=== PATIENT | female | born 1990 | race American Indian/Alaskan Native ===

== ENCOUNTER 2017-06-30 08:37 | Emergency (ER) | payer MEDICAID ==
[2017-06-30 08:54] VITALS: BP 110/64
--- NOTE | 2017-06-30 09:23 | Emergency Department Report ---
Blank Doc - Documentation Documentation: Patient is a 27-year-old black female who states she is approximately 6 weeks who is experiencing 2 days of vaginal bleeding. Patient states is at the level.. There have been several clots. Patient has some crampy lower abdominal pain. Patient does not know her blood type we will do that R typing here in the emergency department as well as a beta Quant. Patient will undergo ultrasound. The patient be reassessed.
[2017-06-30 09:27] LABS: Hemoglobin 11.2 gm/dl (10.1-14.3); Mean Corpuscular HGB Conc 32 % (30-34); Mean Corpuscular Hemoglobin 27 pg (28-32); Mean Corpuscular Volume 84 fl (79-97); Platelet Count 216 K/mm3 (140-440); Red Blood Count 4.17 M/mm3 (3.65-5.03); Red Cell Distribution Width 17.3 % (13.2-15.2)
[2017-06-30 10:05] LABS: Bacteria,Urine 1+ /HPF (Negative); Bilirubin,Urine NEG (Negative); Blood,Urine MOD (Negative); Color,Urine Yellow (Yellow); Protein,Urine <15 mg/dL mg/dL (Negative); Urobilinogen,Urine < 2.0 mg/dL (<2.0)
--- NOTE | 2017-06-30 10:47 | Emergency Department Report ---
ED Abdominal Pain HPI - General Chief Complaint: Abdominal Pain Stated Complaint: VAGINAL BLEEDING/ Time Seen by Provider: 06/30/17 09:09 Source: patient Mode of arrival: Ambulatory Limitations: No Limitations - History of Present Illness Initial Comments: Patient is a 27-year-old black female who states she is approximately 6 weeks who is experiencing 2 days of vaginal bleeding. She reports bleeding is light and she had one day of a small clot. Patient is complaining of cramping in her lower abdomen. It is on and off and this is been going on for 2 days. She is 5 para 4 living 3 with [place] one miscarriage. She reports that the bleeding is very light and she can only see it when she wipes but she had one clot and Wednesday. Patient says she has an appointment at my OB/ [facility] on 07/05/2017. She denies any urinary burning, frequency or urgency. Denies any nausea or vomiting. Denies any abdominal pain. Denies any back pain. Abdominal pain is 7 out of 10 and crampy. This comes and goes and nothing makes it better or makes it worse. She denies significant any medication for pain. MD Complaint: abdominal pain Onset/Timin -: days(s) Location: suprapubic Radiation: none Migration to: no migration Severity: severe Severity scale (0 -10): 7 Quality: cramping Consistency: intermittent Improves With: nothing Worsens With: nothing Context: other (patient reports that she is .) Associated Symptoms: denies: nausea, vomiting, diarrhea, fever, chills, constipation, dysuria, hematemesis, hematochezia, melena, hematuria, anorexia, syncope - Related Data LMP Date: 05/11/17 Previous Rx's Medication Instructions Recorded Last Taken Type Cephalexin [Keflex] 500 mg PO Q8HR 7 Days #14 cap 06/30/17 Unknown Rx Pnv No.95/Ferrous Fum/Folic AC 1 each PO QAM 30 Days #30 tablet 06/30/17 Unknown Rx [Prenavite Tablet] Allergies Allergy/AdvReac Type Severity Reaction Status Date / Time No Known Allergies Allergy Unverified 06/30/17 08:55 ED Review of Systems ROS: Stated complaint: VAGINAL BLEEDING/ Other details as noted in HPI Comment: All other systems reviewed and negative Constitutional: no symptoms reported Respiratory: denies: cough, orthopnea, shortness of breath, SOB with exertion, SOB at rest, stridor, wheezing Cardiovascular: denies: chest pain, palpitations, edema, syncope Gastrointestinal: abdominal pain. denies: nausea, vomiting, diarrhea, constipation, hematemesis, melena, hematochezia Genitourinary: abnormal menses, other (vaginal bleed in 1 episode of clot.). denies: urgency, dysuria, frequency, hematuria, discharge, dyspareunia Musculoskeletal: denies: back pain, joint swelling, arthralgia Skin: denies: rash, lesions Neurological: weakness. denies: headache, abnormal gait, vertigo ED Past Medical Hx - Past Medical History Previous Medical History?: No - Surgical History Past Surgical History?: No - Family History Family history: hypertension - Social History Smoking Status: Never Smoker Substance Use Type: None Other Social History: Patient lives with her children - Medications Home Medications: Home Medications Medication Instructions Recorded Confirmed Last Taken Type Cephalexin [Keflex] 500 mg PO Q8HR 7 Days #14 cap 06/30/17 Unknown Rx Pnv No.95/Ferrous Fum/Folic AC 1 each PO QAM 30 Days #30 tablet 06/30/17 Unknown Rx [Prenavite Tablet] ED Physical Exam - General Limitations: No Limitations General appearance: alert, in no apparent distress - Head Head exam: Present: atraumatic, normocephalic, normal inspection - Eye Eye exam: Present: normal appearance - ENT ENT exam: Present: normal exam, normal orophraynx, mucous membranes moist - Neck Neck exam: Present: normal inspection, full ROM. Absent: tenderness, lymphadenopathy - Respiratory Respiratory exam: Present: normal lung sounds bilaterally. Absent: respiratory distress, chest wall tenderness, accessory muscle use - Cardiovascular Cardiovascular Exam: Present: regular rate, normal rhythm, normal heart sounds. Absent: systolic murmur, diastolic murmur - GI/Abdominal GI/Abdominal exam: Present: soft, normal bowel sounds. Absent: distended, tenderness, guarding, rebound, rigid, organomegaly, mass, bruit, pulsatile mass , hernia - External exam: Present: normal external exam. Absent: erythema, swelling, lesions, lacerations, ecchymosis, bleeding Speculum exam: Present: erythema, cervical discharge (skin), other (lesion from cervical os). Absent: normal speculum exam, vaginal discharge, vaginal bleeding , foreign body, tissue, laceration Bi-manual exam: Present: normal bi-manual exam. Absent: cervical motion tendernes, adnexal tenderness, adnexal mass, uterine tenderness - Expanded Exam Expanded Female exam: Absent: vaginal laceration, tissue present in vagina, herpetic lesions, vulvar erythema, vulvar tenderness, foreign body External exam: Present: normal Amniotic fluid: Present: none Speculum exam: Present: cervical OS open, vaginal bleeding, vaginal discharge - Extremities Exam Extremities exam: Present: normal inspection, full ROM, normal capillary refill , other (no clubbing, cyanosis or edema. Positive pulses all extremities with no neurovascular compromise). Absent: tenderness, pedal edema, joint swelling, calf tenderness - Back Exam Back exam: Present: normal inspection, full ROM, other (ambulates without any difficulties). Absent: tenderness, CVA tenderness (R), CVA tenderness (L), muscle spasm, paraspinal tenderness, vertebral tenderness, rash noted - Neurological Exam Neurological exam: Present: alert, oriented X3, normal gait - Psychiatric Psychiatric exam: Present: normal affect, normal mood - Skin Skin exam: Present: warm, dry, intact, normal color. Absent: rash ED Course Vital Signs 06/30/17 06/30/17 08:49 14:38 Temperature 98.0 F Pulse Rate 68 92 H Respiratory 16 18 Rate Blood Pressure 110/64 O2 Sat by Pulse 100 99 Oximetry - Reevaluation(s) Reevaluation #1: 06/30/17 14:24 Patient stable throughout ED course. No change in abdominal exam. ED Medical Decision Making - Lab Data Result diagrams: 06/30/17 09:16 Lab Results 06/30/17 06/30/17 06/30/17 Range/Units 09:16 09:16 09:16 WBC 8.6 (4.5-11.0) K/mm3 RBC 4.17 (3.65-5.03) M/mm3 Hgb 11.2 (10.1-14.3) gm/dl Hct 35.0 (30.3-42.9) % MCV 84 (79-97) fl MCH 27 L (28-32) pg MCHC 32 (30-34) % RDW 17.3 H (13.2-15.2) % Plt Count 216 (140-440) K/mm3 HCG, Quant 53118 H (0-4) mIU/mL Urine Color (Yellow) Urine Turbidity (Clear) Urine pH (5.0-7.0) Ur Specific [place] (1.003-1.030) Urine Protein (Negative) mg/dL Urine Glucose (UA) (Negative) mg/dL Urine Ketones (Negative) mg/dL Urine Blood (Negative) Urine Nitrite (Negative) Urine Bilirubin (Negative) Urine Urobilinogen (<2.0) mg/dL Ur Leukocyte Esterase (Negative) Urine WBC (Auto) (0.0-6.0) /HPF Urine RBC (Auto) (0.0-6.0) /HPF U Epithel Cells (Auto) (0-13.0) /HPF Urine Bacteria (Auto) (Negative) /HPF Blood Type O POSITIVE 06/30/17 Range/Units 09:25 WBC (4.5-11.0) K/mm3 RBC (3.65-5.03) M/mm3 Hgb (10.1-14.3) gm/dl Hct (30.3-42.9) % MCV (79-97) fl MCH (28-32) pg MCHC (30-34) % RDW (13.2-15.2) % Plt Count (140-440) K/mm3 HCG, Quant (0-4) mIU/mL Urine Color Yellow (Yellow) Urine Turbidity Hazy (Clear) Urine pH 7.0 (5.0-7.0) Ur Specific [place] 1.019 (1.003-1.030) Urine Protein <15 mg/dl (Negative) mg/dL Urine Glucose (UA) Neg (Negative) mg/dL Urine Ketones Neg (Negative) mg/dL Urine Blood Mod (Negative) Urine Nitrite Neg (Negative) Urine Bilirubin Neg (Negative) Urine Urobilinogen < 2.0 (<2.0) mg/dL Ur Leukocyte Esterase Lg (Negative) Urine WBC (Auto) 2.0 (0.0-6.0) /HPF Urine RBC (Auto) 3.0 (0.0-6.0) /HPF U Epithel Cells (Auto) 10.0 (0-13.0) /HPF Urine Bacteria (Auto) 1+ (Negative) /HPF Blood Type Urine culture pending Prep negative for yeast, negative clue cells and negative Trichomonas Gonorrhea and chlamydia pending - Radiology Data Radiology results: report reviewed Ultrasound transvaginal chance abdominal place patient at single viable intrauterine gestation. [place]-rump length corresponding 6 weeks and 6 days and is gestational sac diameter is 8 weeks and 4 days. Patient has left complex ovarian cyst and a right ovary appears normal. - Medical Decision Making ED course: Patient reports that she is approximately 6 weeks . She says that she has an appointment on 07/05/2017 with my [facility]. Patient reports that she's been having cramping and bleeding in that started 2 days ago and she had one episode of clot 2 days ago. Patient had ultrasound which showed viable intrauterine between 6 and 8 weeks gestation. She also has a left ovarian cyst. heart tones detected. I discussed the patient that she needs to keep her appointment with my [facility] and if she develop returning abdominal pain, increasing bleeding to return to the emergency room. Patient's pelvic exam with cervical os open and small amount of blood coming from cervical os. I also discussed her diagnosis of threatened miscarriage and she' s had miscarriage in the past. She says she voiced understanding. I encouraged her to not to do any strenuous activity and to keep her appointment with her [facility]. Patient is not on vitamins so I prescribe her vitamin. Her CBC was stable, hCG quantitative is positive and a urinalysis revealed that she has large amount of leukocyte Estrace with 1+ bacteria and moderate blood. Patient was treated for UTI with Rocephin 1 g. She had gonorrhea chlamydia test done which is still pending and her wet prep was negative. Discharge home with her family in stable condition. Diagnostic/labs: She had urinalysis which is positive for UTI and culture sent. , CBC stable. HCG quantitative positive. Wet prep negative and CHL is pending. Urine culture sent and pending. Transabdominal OB and OB transvaginal ultrasound shows patient with single viable intrauterine gestation with heart rate at 123 beats per minutes and also left ovarian cyst. Please refer to radiology section for ultrasound report and laboratory section for details and lab results. Diagnosis: Threatened miscarriage, abdominal pain in early , vaginal bleeding, compromise cervical os, acute cystitis in and left ovarian cyst Medication given in emergency room: Rocephin1 g IM to treat acute cystitis and patient had no adverse reaction Home prescription: Needle vitamin and Keflex Referrals: Patient has appointment with my [facility] on 07/05/2017 and a encourage her to keep this appointment and to call them and let them know that she was in emergency room today. Discharge instruction: Pelvic rest, no sexual activity until directed by your OB /TIN ASSORTER. Patient instructed if she developed increasing vaginal bleeding, abdominal pain, nausea or vomiting, back pain, fever or chills to return to emergency room [facility]. She was discharged home with her family in stable condition and voices understanding of discharge injection and treatment plan Critical care attestation.: If time is entered above; I have spent that time in minutes in the direct care of this critically ill patient, excluding procedure time. ED Disposition Clinical Impression: Threatened miscarriage in early , Acute cystitis during in first trimester, Vaginal bleeding during , Left ovarian cyst Abdominal pain Qualifiers: Abdominal location: lower abdomen, unspecified Qualified Code(s): R10.30 - Lower abdominal pain, unspecified Disposition: DC-01 TO HOME OR SELFCARE Is pt being admited?: No Does the pt Need Aspirin: No Condition: Stable Instructions: Threatened Miscarriage (ED), Ovarian Cyst (ED), Urinary Tract Infection in Women (ED), Abdominal Pain (ED) Additional Instructions: Please follow-up with your [facility] doctor as scheduled on 07/05/2017. Take antibiotics as prescribed for urinary tract infection rest and Avoid doing any strenuous activity. Increasing fluid intake to 2-3 L of water daily You are high risk for threatened miscarriage so you'll need to follow up with your [facility]. Start vitamin She develop increasing vaginal bleeding, abdominal pain, nausea no vomiting in, weakness, please return to the emergency room otherwise follow-up with your OB/ TIN ASS[facility]TER Prescriptions: Cephalexin [Keflex] 500 mg PO Q8HR 7 Days #14 cap Pnv No.95/Ferrous Fum/Folic AC [Prenavite Tablet] 1 each PO QAM 30 Days #30 tablet Referrals: [facility] [Provider Group] - 07/05/17
[2017-06-30] MEDS ORDERED: XYLOCAINE 1% MPF 5 mL INFILTRATI ONE (11:40)
[2017-06-30] MEDS ORDERED: ROCEPHIN IM STA (11:40)
--- NOTE | 2017-06-30 12:04 | Ultrasound Report ---
Pelvic and transvaginal sonography: History: Vaginal bleeding. Findings: Uterus measures 11.2 x 5 x 6.6 cm. Single viable intrauterine gestation is noted. Gestational sac diameter 34.4 mm corresponding to 8 weeks and 4 days of gestation. CRL fetus 8.9 mm corresponding to 6 weeks and 6 days of gestation. heart rate 123 per minute. Right ovary 3.3 x 1.7 x 2 cm. No mass. Left ovary 3.3 x 2.2 x 2.8 cm. Complex cyst in the left ovary measures 2.4 cm. Impression: Single viable intrauterine gestation.
== END 2017-06-30 14:38 | disposition home or self-care (01) ==
LOC: ED 08:37
DX: O20.0 Threatened abortion (principal); Z3A.01 Less than 8 weeks gestation of pregnancy
CPT/HCPCS: 36415; 76801; 76817; 81001; 84702; 85027; 86900; 86901; 87086; 87210; 87591; 96372; 99284; J0696

== ENCOUNTER 2017-07-30 23:33 | Emergency (ER) | payer MEDICAID ==
[2017-07-31 01:04] LABS: Bilirubin,Urine NEG (Negative); Blood,Urine LG (Negative); Color,Urine Yellow (Yellow); Mucus,Urine FEW /HPF; Protein,Urine <15 mg/dL mg/dL (Negative)
[2017-07-31 01:13] LABS: Basophils % (Auto) 0.3 % (0.0-1.8); Eosinophils # (Auto) 0.1 K/mm3 (0.0-0.4); Hematocrit 34.1 % (30.3-42.9); Hemoglobin 10.8 gm/dl (10.1-14.3); Lymphocytes # (Auto) 3.2 K/mm3 (1.2-5.4); Lymphocytes % (Auto) 36.1 % (13.4-35.0); Mean Corpuscular HGB Conc 32 % (30-34); Mean Corpuscular Hemoglobin 27 pg (28-32); Mean Corpuscular Volume 86 fl (79-97); Monocytes # (Auto) 0.6 K/mm3 (0.0-0.8); Monocytes % (Auto) 7.3 % (0.0-7.3); Platelet Count 212 K/mm3 (140-440); Red Blood Count 3.95 M/mm3 (3.65-5.03); Red Cell Distribution Width 17.8 % (13.2-15.2)
[2017-07-31 01:32] LABS: Alanine Aminotransferase 7 units/L (7-56); Albumin 3.8 g/dL (3.9-5); BUN/Creatinine Ratio 26; Blood Urea Nitrogen 18 mg/dL (7-17); Calcium 8.8 mg/dL (8.4-10.2); Hemolysis Index 0
--- NOTE | 2017-07-31 05:42 | Ultrasound Report ---
FINAL REPORT EXAM: US OB TRANSVAGINAL HISTORY: +hcg abd pain TECHNIQUE: Transvaginal imaging was obtained the pelvis including Doppler interrogation of the adnexa. FINDINGS: The uterus is anteverted measuring 8.8 cm x 5.4 cm x 7.3 cm. The endometrium is thickened at 20.3 mm. The thickened endometrium has a heterogeneous appearance in the fundus. Retained products of conception cannot be excluded. There is no evidence of an intrauterine gestational sac. There is a nabothian cysts in the cervix. Free fluid is not seen. The right ovary is normal in size contour and echotexture measuring 3 cm x 1.5 cm x 1.3 cm. There are benign follicles in right ovary. The blood flow is normal in the right ovary. The left ovary measures 3.5 cm x 2.3 cm x 2.1 cm. The blood flow is normal left ovary. There are benign-appearing follicles in the left ovary. IMPRESSION: Heterogeneous thickened endometrium particularly in the fundus without evidence of an intact IUP. The findings most likely represent retained products of conception. Benign-appearing follicles in both ovaries. No evidence of free fluid.
--- NOTE | 2017-07-31 05:43 | Ultrasound Report ---
FINAL REPORT EXAM: US OB < = 14 WEEKS FETUS HISTORY: +hcg abd pain TECHNIQUE: Transabdominal imaging was obtained of the pelvis including Doppler interrogation of the adnexa. FINDINGS: The uterus is anteverted measuring 8.8 cm x 5.4 cm x 7.3 cm. There is a small nabothian cysts in the cervix. The endometrium is thickened measuring 20.3 mm. It has a heterogeneous echotexture particularly in the fundus. There is no evidence of an intrauterine gestational sac otherwise. Free fluid is not seen. The right ovary is normal size contour and echotexture measuring 3 cm x 1.5 cm x 1.3 cm. There are benign-appearing follicles in right ovary. The blood flow is normal. The left ovary measures 3.5 cm x 2.3 cm x 2.1 cm. There are benign-appearing follicles in left ovary. The blood flow is normal to left ovary. IMPRESSION: Thickened endometrium with heterogeneous echotexture most likely representing retained products of conception. No evidence of an intact IUP or ectopic . Normal appearing ovaries with benign follicles.
--- NOTE | 2017-07-31 07:22 | Emergency Department Report ---
ED Abdominal Pain HPI - General Chief Complaint: Abdominal Pain Stated Complaint: VAGINAL BLEEDING/LOWER ABD PAIN Time Seen by Provider: 07/31/17 06:43 Source: patient Mode of arrival: Ambulatory Limitations: No Limitations - History of Present Illness Initial Comments: Patient presents with persistent and increasing vaginal bleeding since having therapeutic 2 weeks earlier. She has not had any fever. She initially had a small amount of spotting after the procedure, which was performed at a women's clinic in one week, by , whom she did not have a relationship with, and with whom she has not followed. She did not contact the Center when bleeding began getting more heavy 5 days ago, with clots and soaking several pads over the course of the day. She has not lightheadedness, no fever chills or diaphoresis, no abdominal pain, no cough or congestion. Patient has an securities sales associate, name she can't recall, on [facility], and had an appointment for 3 days ago, but had car trouble and could not make it, and has a repeat appointment on Wednesday. She came in because of the persistence of the heavy bleeding. Past medical history is otherwise one of good general health. - Related Data Previous Rx's Medication Instructions Recorded Last Taken Type Cephalexin [Keflex] 500 mg PO Q8HR 7 Days #14 cap 06/30/17 Unknown Rx Pnv No.95/Ferrous Fum/Folic AC 1 each PO QAM 30 Days #30 tablet 06/30/17 Unknown Rx [Prenavite Tablet] HYDROcodone/ACETAMINOPHEN [Diamond 1 each PO Q6HR PRN #20 tablet 07/31/17 Unknown Rx 5-325 Tablet] Ondansetron [Zofran ODT TAB] 8 mg PO Q8HR PRN #10 tab.rapdis 07/31/17 Unknown Rx metroNIDAZOLE [Metronidazole] 500 mg PO TID #21 tablet 07/31/17 Unknown Rx Allergies Allergy/AdvReac Type Severity Reaction Status Date / Time No Known Allergies Allergy Unverified 06/30/17 08:55 ED Review of Systems ROS: Stated complaint: VAGINAL BLEEDING/LOWER ABD PAIN Other details as noted in HPI Comment: All other systems reviewed and negative Constitutional: no symptoms reported. denies: chills, diaphoresis, fever, weakness ENT: throat pain Respiratory: denies: cough, shortness of breath, wheezing Cardiovascular: denies: chest pain, palpitations Endocrine: no symptoms reported Gastrointestinal: denies: abdominal pain, nausea, diarrhea Genitourinary: other Skin: denies: rash, lesions Neurological: denies: headache, weakness, paresthesias Psychiatric: denies: anxiety, depression Hematological/Lymphatic: easy bleeding (vaginal bleeding as noted in history). denies: easy bruising ED Past Medical Hx - Past Medical History Previous Medical History?: No - Surgical History Past Surgical History?: No - Social History Smoking Status: Former Smoker Substance Use Type: None - Medications Home Medications: Home Medications Medication Instructions Recorded Confirmed Last Taken Type Cephalexin [Keflex] 500 mg PO Q8HR 7 Days #14 cap 06/30/17 Unknown Rx Pnv No.95/Ferrous Fum/Folic AC 1 each PO QAM 30 Days #30 tablet 06/30/17 Unknown Rx [Prenavite Tablet] HYDROcodone/ACETAMINOPHEN [Diamond 1 each PO Q6HR PRN #20 tablet 07/31/17 Unknown Rx 5-325 Tablet] Ondansetron [Zofran ODT TAB] 8 mg PO Q8HR PRN #10 tab.rapdis 07/31/17 Unknown Rx metroNIDAZOLE [Metronidazole] 500 mg PO TID #21 tablet 07/31/17 Unknown Rx ED Physical Exam - General Limitations: No Limitations General appearance: alert, in no apparent distress - Head Head exam: Present: atraumatic, normocephalic - Eye Eye exam: Present: PERRL, EOMI - ENT ENT exam: Present: normal exam - Neck Neck exam: Present: normal inspection, full ROM. Absent: tenderness - Respiratory Respiratory exam: Present: normal lung sounds bilaterally. Absent: wheezes, rales, rhonchi - Cardiovascular Cardiovascular Exam: Present: regular rate, normal heart sounds - GI/Abdominal GI/Abdominal exam: Present: soft, normal bowel sounds. Absent: tenderness, guarding, rebound - Rectal Rectal exam: Present: deferred - External exam: Present: other (deferred due to performance of ultrasound examination) - Extremities Exam Extremities exam: Present: normal inspection - Back Exam Back exam: Present: normal inspection - Neurological Exam Neurological exam: Present: alert, oriented X3, CN II-XII intact. Absent: motor sensory deficit - Psychiatric Psychiatric exam: Present: normal affect, normal mood - Skin Skin exam: Present: warm, dry ED Course Vital Signs 07/31/17 00:03 Temperature 36.6 C Pulse Rate 72 Respiratory 16 Rate Blood Pressure 101/70 O2 Sat by Pulse 100 Oximetry ED Medical Decision Making - Lab Data Result diagrams: 07/31/17 00:56 07/31/17 00:56 - Radiology Data Radiology results: report reviewed (transvaginal and ultrasound shows absence of intrauterine fetus or sac, but there is heterogeneous material in the fundus compatible with retained products of conception, with increased width of the endometrium, at 20.3 mm. This is compatible with retained products of conception.) - Medical Decision Making This patient with therapeutic 2 weeks ago has had persistent bleeding, and ultrasound findings of retained products of conception. She is clinically stable despite the bleeding, hemoglobin is 10.8, and her ABO status is O+, so RhoGAM is not necessary. Patient was offered finding securities sales associate here for performing dilatation and curettage, but patient feels comfortable waiting and following with her own pre planning advisor in 4 days. Patient will be covered with antibiotics, metronidazole, given medication for pain, nausea, and given work release. - Differential Diagnosis retained products of conception, septic , fibroids, retained pregna Critical Care Time: No Critical care attestation.: If time is entered above; I have spent that time in minutes in the direct care of this critically ill patient, excluding procedure time. ED Disposition Clinical Impression: Retained products of conception following Disposition: DC-01 TO HOME OR SELFCARE Is pt being admited?: No Does the pt Need Aspirin: No Condition: Stable Instructions: Abdominal Pain (ED) Additional Instructions: You may be up and around at home, but rest as much as possible while waiting to follow up with your securities sales associate for repeat examination. Return for repeat examination if you feel much worse in any way, if you develop fever, or if you become significantly lightheaded or pass out with standing or walking. You can take Tylenol for mild discomfort, and you can also take Diamond for more severe pain as directed every 6 hours Take Zofran as needed every 8 hours for nausea. Take metronidazole 3 times daily for the next week while waiting to see her doctor. Prescriptions: HYDROcodone/ACETAMINOPHEN [Diamond 5-325 Tablet] 1 each PO Q6HR PRN #20 tablet PRN Reason: Pain metroNIDAZOLE [Metronidazole] 500 mg PO TID #21 tablet Ondansetron [Zofran ODT TAB] 8 mg PO Q8HR PRN #10 tab.rapdis PRN Reason: Nausea Referrals: PRIMARY CARE, [Primary Care Provider] - 3-5 Days Forms: Work/School Release Form(ED) Time of Disposition: 07:40
[2017-07-31] MEDS ORDERED: FLAGYL PO ONE (07:45)
[2017-07-31 07:59] VITALS: BP 102/78
== END 2017-07-31 07:59 | disposition home or self-care (01) ==
LOC: ED 23:33
DX: O03.1 Delayed or excessive hemorrhage following incomplete spontaneous abortion (principal); Z87.891 Personal history of nicotine dependence
CPT/HCPCS: 36415; 76801; 76817; 80053; 81001; 84702; 85025; 86850; 86900; 86901